=== PATIENT | male | born 1955 | race Hispanic/Latino ===

== ENCOUNTER 2022-10-19 17:22 | Emergency (ER) | payer SELFPAY ==
[2022-10-19] VITALS (11 sets, daily range): BP systolic 166–190; BP diastolic 89–110; PULSE 74–103; RESP 16–81; TEMP 36.3; O2SAT 94–100
--- NOTE | ~2022-10-19 | CT_ITS ---
EXAMINATION: CT chest abdomen pelvis w con DATE: 10/19/2022 19:14 INDICATION: Epigastric, abdominal and back pain. TECHNIQUE: Computed tomography (CT) of the chest, abdomen, and pelvis was performed with 100 mL Omnip aque-350 intravenous contrast. Automated exposure control and iterative reconstruction technique were employed. The dose-length product was 543.29 mGy-cm. COMPARISON: None FINDINGS: CHEST CT: Dependent predominant groundglass opacities in the bilateral upper and lower lobes. Cardiac medically . Mild atherosclerotic coronary artery calcific lesion. No pericardial or pleural effusion. Borderlin e ascending thoracic aortic aneurysm measuring up to 4.0 cm in maximal diameter. No aortic dissection . No pathologically enlarged thoracic lymphadenopathy. Mild thoracic and moderate lower cervical spon dylosis. ABDOMEN/PELVIS CT: Filling defect with meniscus sign likely representing an obstructing gallstone at the distalmost aspe ct of the dilated common bile duct which measures up to 10 mm maximal diameter. There is also diffuse mild intrahepatic biliary ductal dilation. The gallbladder is dilated to 5.4 x 5.6 cm in maximal radha meter but without evident gallbladder wall thickening or pericholecystic inflammatory stranding to mo re specifically suggest acute cholecystitis. Spleen, pancreas, bilateral adrenal glands and left kidn ey are normal. A couple right renal cysts, the larger measuring 3 cm. Bowels including the appendix a re normal. Bladder is normal. Moderate prostatomegaly measuring 4.8 x 3.7 cm . No free intraperitonea l gas or fluid. No pathologically enlarged abdominal or pelvic lymphadenopathy. Small fat-containing umbilical hernia. L5 spondylolysis with bilateral pars interarticularis defects, 4 mm anterolisthesis L5 on S1. Moderate disc height loss at L5-S1 with Modic type III sclerotic endplate changes at S1. IMPRESSION: 1. Likely obstructing gallstone at the distalmost common bile duct with dilation of the gallbladder a s well as intra and extrahepatic biliary ducts. Correlate with liver function tests and consider ERCP . 2. Dependent groundglass opacities in both lungs of likely atelectasis although differential would in clude mild pulmonary edema or less likely pneumonia. 3. Prostatomegaly. 4. L5 spondylolysis with bilateral pars intra-articular is defects and 4 mm anterolisthesis on S1. Reviewed, dictated and finalized at location A. IMPRESSION: 1. Likely obstructing gallstone at the distalmost common bile duct with dilatio n of the gallbladder as well as intra and extrahepatic biliary ducts. Correlate with liver function tests and consider ERCP. 2. Dependent groundglass opacities in both lungs of likely atelectasis although differential would include mild pulmonary edema or less likely pneumonia. 3. Prostatomegaly. 4. L5 spondylolysis with bilateral pars intra-articular is defects and 4 mm ant erolisthesis on S1.
[2022-10-19 18:24] LABS: Basophils Absolute Auto 0.03 K/mm3 (0.00-0.10); Basophils Percent Auto 0.3 % (0.0-1.0); Eosinophils Absolute Auto 0.02 K/mm3 (0.02-0.50); Eosinophils Percent Auto 0.2 % (1.0-6.0); Hematocrit 44.6 % (37.0-46.0); Hemoglobin 15.2 g/dL (12.4-15.3); Immature Granulocyte Absolute 0.04 K/mm3 (0.00-0.00); Immature Granulocyte Percent A 0.4 % (0.0-0.0); Lymphocytes Absolute Auto 0.72 K/mm3 (1.10-4.50); Lymphocytes Percent Auto 7.7 % (18.0-42.0); Mean Corpuscular HGB Conc 34.1 g/dL (32.0-36.0); Mean Corpuscular Hemoglobin 31.4 pg (27.0-31.0); Mean Corpuscular Volume 92.1 fL (78.0-102.0); Monocytes Absolute Auto 0.34 K/mm3 (0.10-0.90); Monocytes Percent Auto 3.6 % (2.0-11.0); Neutrophils Absolute Auto 8.2 K/mm3 (1.7-7.2); Neutrophils Percent Auto 87.8 % (50.0-70.0); Platelet Count Result 247 K/mm3 (150-420); Red Blood Count 4.84 M/mm3 (4.70-6.10); Red Cell Distribution Width 13.7 % (11.6-14.4); White Blood Count 9.4 K/mm3 (4.8-10.8)
[2022-10-19] MEDS: diphenhydrAMINE HCl INJ 50 MG/ML VIAL 25 MG IV PUSH (18:28)
[2022-10-19] MEDS: KETOROLAC 30 MG/ML VIAL (*BKC) IV PUSH (18:28)
[2022-10-19] MEDS: SODIUM CHLORIDE 0.9% IV 1,000 ML 999 ML IV CONT ×2 (18:29→20:28)
[2022-10-19 18:34] LABS: Alanine Aminotransferase 222 U/L (16-63); Albumin Level 4.1 g/dL (3.4-5.0); Alkaline Phosphatase 202 U/L (46-116); Anion Gap 11 mmol/L (8-16); Aspartate Amino Transferase 210 U/L (15-37); Bilirubin,Total 2.1 mg/dL (0.00-1.00); Blood Urea Nitrogen 12 mg/dL (7-18); Calcium 8.9 mg/dL (8.5-10.1); Carbon Dioxide 29 mmol/L (21-32); Chloride 103 mmol/L (98-108); Estimated CRCL calculation 57 ml/min; Estimated Glomerular Filt Rate > 60; Glucose 133 mg/dL (70-99); Lipase 35 U/L (16-77); Magnesium 2.3 mg/dL (1.8-2.4); Osmolality Calculated 297 mOsm/kg (285-295); Potassium 3.5 mmol/L (3.5-5.1); Sodium 143 mmol/L (136-145)
[2022-10-19 18:37] LABS: Lactic Acid Reflex 0.8 mmol/L (0.4-2.0)
--- NOTE | 2022-10-19 18:39 | ED.GENADULT ---
HPI - General Adult General Chief complaint: Abdominal Pain Stated complaint: STOMACH PAIN Time Seen by Provider: 10/19/22 17:49 History of Present Illness HPI narrative: Healthy 67yo man, b[place]ian speaking only, who for 3 days has had a constant ache in the midabdomen and in the bilateral flanks, with associated nausea, vomiting, and watery diarrhea. No fever. no black or bloody emesis or stool. No pain with urination. Related Data Home Medications Medication Instructions Recorded Confirmed No Home Medications 10/19/22 10/19/22 Allergies Allergy/AdvReac Type Severity Reaction Status Date / Time No Known Allergies Allergy Verified 10/19/22 17:45 Review of Systems Review of Systems: All systems reviewed & are unremarkable except as noted in HPI and below Constitutional: Constitutional: Denies fever(s) ENT: Denies dizziness Cardiovascular: Cardiovascular: Denies chest pain Respiratory: Respiratory: Denies dyspnea Exam Const: General: healthy appearing and no acute distress Nutritional Appearance: well nourished Orientation/consciousness: patient oriented x3 Eyes: Conjunctivae: conjunctivae normal EOM: EOMs intact bilaterally Direct Ophthalmoscopy: no photophobia Neck: Neck: normal visual inspection Other: supple Chest: Chest palpation & inspection: no tenderness Resp: Effort & Inspection: normal respiratory effort and not labored Auscultation: clear to auscultation bilaterally Cardio: Rate: regular rate Rhythm: regular rhythm GI: Inspection: non-distended GI Palp: Yes Soft to palpation and No Tenderness to palpation present (GI) Skin: General skin exam: normal color, no jaundice and no pallor Neuro: General: patient oriented x3 and moves all extremities Extrem: General: normal to inspection Course Course Emergency Course: 2012: CT shows biliary obstruction from a stone in the distal CBD, biliary dilatation, gallbladder dilatation. Pt's pain remains improved with Ketorolac, Diphenhydramine. Zosyn ordered. Will need transfer. pt no preference on transfer. [facility] called and has no ERCP capability. Will try other hospitals. Vital Signs Vital signs: Vital Signs Temperature 36.3 C L 10/19/22 17:30 Pulse Rate 74 10/19/22 17:30 Respiratory Rate 20 10/19/22 17:30 Blood Pressure 183/96 H 10/19/22 17:30 Pulse Oximetry 100 10/19/22 17:30 Oxygen Delivery Room Air 10/19/22 17:30 Temperature 36.3 C L 10/19/22 17:45 Pulse Rate 74 10/19/22 17:45 Respiratory Rate 20 10/19/22 17:45 Blood Pressure 183/96 H 10/19/22 17:45 Pulse Oximetry 100 10/19/22 17:45 Oxygen Delivery Room Air 10/19/22 17:45 Medical Decision Making MDM Narrative Medical decision making narrative: abd pain, vomiting, diarrhea DDx gastroenteritis, food-borne toxin, colitis, diverticulitis, no evidence of GI bleeding Vital Signs Vital Signs: Vital Signs Temperature 36.3 C L 10/19/22 17:30 Pulse Rate 74 10/19/22 17:30 Respiratory Rate 20 10/19/22 17:30 Blood Pressure 183/96 H 10/19/22 17:30 Pulse Oximetry 100 10/19/22 17:30 Oxygen Delivery Room Air 10/19/22 17:30 Temperature 36.3 C L 10/19/22 17:45 Pulse Rate 74 10/19/22 17:45 Respiratory Rate 20 10/19/22 17:45 Blood Pressure 183/96 H 10/19/22 17:45 Pulse Oximetry 100 10/19/22 17:45 Oxygen Delivery Room Air 10/19/22 17:45 Lab Data Lab results reviewed: Yes I reviewed the patient's lab results. 10/19/22 18:13 10/19/22 18:13 Labs: Lab Results 10/19/22 Range/Units 18:13 WBC 9.4 (4.8-10.8) K/mm3 RBC 4.84 (4.70-6.10) M/mm3 Hgb 15.2 (12.4-15.3) g/dL Hct 44.6 (37.0-46.0) % MCV 92.1 (78.0-102.0) fL MCH 31.4 H (27.0-31.0) pg MCHC 34.1 (32.0-36.0) g/dL RDW 13.7 (11.6-14.4) % Plt Count 247 (150-420) K/mm3 MPV 10.0 (8.7-11.0) fl Immature Gran % (Auto) 0.4 H (0.0-0.0) % Neut % (Auto) 87.8 H (50.0-70
[2022-10-19 19:48] LABS: Appearance Urine Clear (Clear); Bilirubin Urine Negative (Negative); Blood Urine 2+ (Negative); Color Urine Yellow (Yellow); Glucose Urine UA Negative (Negative); Ketones Urine 1+ (Negative); Leukocyte Esterase Ur Negative LEU/UL (Negative); Nitrate Urine Negative (Negative); Protein Urine Negative (Negative); Specific Grav Ur <= 1.005 (1.010-1.020); Urobilinogen Urine 0.2 mg/dL (0.2-1.0); pH Urine 6.5 (5.0-8.0)
[2022-10-19 19:53] LABS: Add Urine Microscopic? YES
[2022-10-19] MEDS: HYDROmorphone HCL INJ (*CRX) 2 MG/ML VIAL 0.5 MG IV PUSH (22:48)
[2022-10-20] VITALS: BP 136/115; PULSE 77; RESP 18; O2SAT 96
[2022-10-20 01:39] VITALS: BP 139/91; PULSE 74; RESP 17; TEMP 36.6; O2SAT 94
--- NOTE | 2022-10-20 01:41 | PC.NURSE ---
pt transferred to [facility] room 862 vis Zurdo [facility]IS[facility]
== END 2022-10-20 01:41 | disposition short-term general hospital (02) ==
PROVIDERS: Emergency Provider Emergency Medicine
DX: K80.51 Calculus of bile duct without cholangitis or cholecystitis with obstruction (principal)
CPT/HCPCS: 36415; 71260; 74177; 80053; 81001; 83605; 83690; 83735; 85025; 96361; 96365; 96375; 99285; J1170; J1200; J1885; J2543; J7030; Q9967